=== PATIENT | female | born 1995 | race Hispanic/Latino ===

== ENCOUNTER 2022-03-31 15:02 | Day surgery (SDC) | payer OTHER ==
[2022-03-31] MEDS ORDERED: hydrALAZINE 20 MG/ML VIAL SLOW IVP PRN (16:41)
== END 2022-03-31 16:45 | disposition home or self-care (01) ==
LOC: CSHLD/OP 15:02
PROVIDERS: ATTEND Obstetrics & Gynecology
DX: O26.853 Spotting complicating pregnancy, third trimester (principal); O99.613 Diseases of the digestive system complicating pregnancy, third trimester; K59.00 Constipation, unspecified; Z3A.29 29 weeks gestation of pregnancy

== ENCOUNTER 2022-06-05 19:06 | Inpatient (IN) | payer OTHER ==
[2022-06-05 19:39] VITALS: BMI 27.1
[2022-06-05] MEDS ORDERED: hydrALAZINE 20 MG/ML VIAL SLOW IVP PRN ×2 (20:06→21:40)
[2022-06-05] MEDS ORDERED: Lactated Ringer's 1,000 ML IV SCH (20:15)
[2022-06-05 20:51] LABS: Bilirubin Neg (Negative); Blood, Urine Negative (Negative); Clarity Clear (Clear); Glucose, Urine (Dipstick) Normal (Negative); Ketone, Urine 50 mg/dL (Negative); Leukocyte Negative (Negative); Nitrite Negative (Negative); Protein, Urine (Dipstick) Negative (Neg-Trace); Specific Gravity, Urine 1.005 (1.002-1.036); Urobilinogen Normal mg/dL (Less than 2)
[2022-06-05 20:58] LABS: Urine Culture Reflex No No
[2022-06-05 21:06] LABS: Bacteria/HPF Rare-Few HPF (None Seen); RBC/HPF 0-3 HPF (0-3); Squamous Epithelial 0-3 HPF (0-3); WBC/HPF 0-3 HPF (0-3)
[2022-06-05] MEDS ORDERED: Promethazine HCl 25 MG/ML VIAL IM PRN (21:40)
[2022-06-05] MEDS ORDERED: Acetaminophen 500 MG TAB PO PRN (21:40)
[2022-06-05] MEDS ORDERED: Ondansetron PF 4 MG/2 ML Vial IVP PRN (21:40)
[2022-06-05] MEDS ORDERED: Ibuprofen 800 MG TAB PO PRN (21:40)
[2022-06-05] MEDS ORDERED: Lidocaine 1% (PF) 30 ML VIAL SC PRN (21:40)
[2022-06-05] MEDS ORDERED: Diphenoxylate HCl/Atropine Tablet PO PRN ×2 (21:40)
[2022-06-05] MEDS ORDERED: Carboprost 250 MCG/ML AMP IM PRN (21:40)
[2022-06-05] MEDS ORDERED: Misoprostol 200 MCG TAB PR PRN (21:40)
[2022-06-05] MEDS ORDERED: Methylergonovine 0.2 MG/ML VIAL IM PRN (21:40)
[2022-06-05] MEDS ORDERED: HYDROcodone/Acetaminophen 5/325 mg Tablet PO PRN ×2 (21:40)
[2022-06-05] MEDS ORDERED: Butorphanol Tartrate 1 MG/ML VIAL SLOW IVP PRN (21:40)
[2022-06-05 22:43] LABS: Hemoglobin 8.7 g/dL (12.0-15.5); Mean Corpuscular HGB CONC 30.2 g/dL (32.0-36.0); Mean Corpuscular Hemoglobin 22.9 pg (27.0-33.0); Mean Corpuscular Volume 75.8 fl (81.6-98.3); Mean Platelet Volume 11.4 fl (7.4-10.4); Platelet Count 240 10x3/uL (150-450); RBC Distribution Width 16.2 % (11.5-14.5)
[2022-06-05 23:28] LABS: Hep B Surf Ag Non-Reactive S/CO (NonReactive); Syphilis Antibody Nonreactive (Nonreactive); Syphilis Antibody Index 0.05 S/CO (<1.00 Non-Reactive)
[2022-06-05 23:32] LABS: HBSAg Index 0.18 S/CO (0-0.99)
[2022-06-06 00:22] LABS: SARS-CoV-2 NAA Rapid Test Not Detected (NotDetected)
[2022-06-06] MEDS: NS w/ Oxytocin 30 units 500 ML IV SCH ×2 (06:14→12:56)
[2022-06-06] MEDS: Lactated Ringer's 1,000 ML IV SCH ×3 (10:08→16:25)
[2022-06-06] MEDS ORDERED: Lanolin Ointment 7 GM TUBE TOP PRN (14:04)
[2022-06-06] MEDS ORDERED: Milk Of Magnesia 30 ML UDCUP PO PRN (14:04)
[2022-06-06] MEDS ORDERED: Preparation H Ointment 28 GM TUBE PR PRN (14:04)
[2022-06-06] MEDS ORDERED: Bisacodyl 10 MG SUPP PR PRN (14:04)
[2022-06-06] MEDS ORDERED: diphenhydrAMINE 25 MG CAP PO PRN (14:04)
[2022-06-06] MEDS ORDERED: HYDROcodone/Acetaminophen 5/325 mg Tablet PO PRN (14:04)
[2022-06-06] MEDS ORDERED: Ondansetron PF 4 MG/2 ML Vial IVP PRN (14:04)
[2022-06-06] MEDS ORDERED: Promethazine HCl 25 MG/ML VIAL IM PRN (14:04)
[2022-06-06] MEDS ORDERED: hydrALAZINE 20 MG/ML VIAL SLOW IVP PRN (14:04)
[2022-06-06] MEDS: Ibuprofen 800 MG TAB PO SCH ×2 (14:44→20:59)
[2022-06-06] MEDS: Ferrous Sulfate 325 MG TAB PO SCH (17:39)
[2022-06-06] MEDS: Docusate 100 MG CAP PO SCH (20:59)
[2022-06-07] MEDS: Ibuprofen 800 MG TAB PO SCH ×3 (05:14→22:04)
[2022-06-07] MEDS: Ferrous Sulfate 325 MG TAB PO SCH ×2 (08:13→17:31)
[2022-06-07] MEDS: Prenatal Vitamin 1 TAB PO SCH (08:13)
[2022-06-07] MEDS: Docusate 100 MG CAP PO SCH ×2 (08:14→22:04)
[2022-06-07] MEDS ORDERED: Boostrix 0.5 ML (Tdap) VIAL IM ONE (14:04)
[2022-06-08] MEDS: Ibuprofen 800 MG TAB PO SCH ×2 (05:37→14:44)
[2022-06-08 07:56] VITALS: BP 125/68; TEMP 97.9
[2022-06-08] MEDS: Ferrous Sulfate 325 MG TAB PO SCH (07:58)
[2022-06-08] MEDS: Docusate 100 MG CAP PO SCH (07:58)
[2022-06-08] MEDS: Prenatal Vitamin 1 TAB PO SCH (07:59)
== END 2022-06-08 17:00 | disposition home or self-care (01) | DRG 806 ==
LOC: CSHLD/OP 19:06 → CSHLD 21:41 → UNDOADMIN 06-06 06:14 → CSHLD 06-06 06:14 → CSHPP 06-06 15:50
PROVIDERS: ADMIT Family Medicine; ATTEND Family Medicine
PROC: 10E0XZZ Delivery of Products of Conception, External Approach (ICD-10-PCS; principal; 2022-06-06)
PROC: 10907ZC Drainage of Amniotic Fluid, Therapeutic from Products of Conception, Via Natural or Artificial Opening (ICD-10-PCS; 2022-06-06)
DX: O99.02 Anemia complicating childbirth (principal); O98.52 Other viral diseases complicating childbirth; Z37.0 Single live birth; D64.9 Anemia, unspecified; Z20.822 Contact with and (suspected) exposure to COVID-19; B00.9 Herpesviral infection, unspecified; Z3A.37 37 weeks gestation of pregnancy
CPT/HCPCS: 81001; 85027; 86762; 86780; 86850; 86900; 86901; 87340; 99285; J2590; U0002